=== PATIENT | female | born 1945 | race Caucasian/White ===

== ENCOUNTER → 2018-10-09 | Outpatient (CLI) | payer OTHER ==
[~2018-10-09] VITALS: Ht 154.9 cm; Wt 61.2 kg
[~2018-10-09] MED LIST: ATIVAN1 MG PO; BYSTOLIC10 MG PO; CRESTOR20 MG PO; CYMBALTA60 MG PO; HUMALOG KW100 UNIT/1 SQ; NEXIUM40 MG PO; NORVASC5 MG PO; PLAVIX 75 MG TA75 M1 PO
[2018-10-09 07:32] LABS: MCH 29.6 pg (26.0-34.0); MCHC 34.3 g/dL (28.0-37.0); MCV 86.3 fL (80.0-100.0); RBC 4.05 mil/uL (4.20-5.00); RDW 14.7 % (10.5-14.5); WBC 4.4 thou/uL (4.0-11.0)
[2018-10-09 07:38] LABS: CALCIUM 9.1 mg/dL (8.5-10.1); CREATININE 1.4 mg/dL (0.6-1.0); POTASSIUM 3.7 mmol/L (3.5-5.1)
--- NOTE | 2018-10-09 08:26 | EKG ---
[address] [address] ELECTROCARDIOGRAM REPORT Name: KASIA THOMPSON [id number] ������������������ Admission: 10/09/18 ������������������ Attend Phys: Jersey Castillo MD, Discharge: ������������������ Date of : 45 Report #: [id number] ����������������������������������������������������������������� [id number] THIS REPORT FOR: //name// [facility] Test Date: 2018-10-09 Test Time: 07:30:32 Pat Name: KASIA THOMPSON Department: Room: Gender: F Telecasting Technician: Fidel DING : 1945 Requested By: Jersey Castillo Order Number: [id number] MD: Luis Ritchie Measurements Intervals [place] Rate: 55 P: 44 [place]: 154 QRS: 37 QRSD: 104 T: 161 QT: 464 QTc: 444 Interpretive Statements Sinus rhythm Inferior infarct, old Lateral leads are also involved No previous ECG available for comparison Electronically Signed On 10-09-2018 8:26:00 CDT by Luis Ritchie [email or web address] ��������������������������������������������� <ELECTRONICALLY SIGNED> ���������������������������������������� By: Luis Ritchie MD ��������������������������������������������� 10/09/18 0826 9 9 Luis Ritchie MD /JOHNNIE
--- NOTE | 2018-10-09 16:36 | CATHLAB ---
[facility] [place] [address] INVASIVE PROCEDURE REPORT Name: KASIA THOMPSON Room #: REG Jerod#: [id number] ������������� Admission: 10/09/18 ������������� Attend Phys: Jersey Castillo, Discharge: ��� ������������� ��� Date of : 45 Date of Service: 10/09/18 1636 �� Report #: [id number] �������� ��������������������������������������������[id number] THIS REPORT FOR: //name// APPROVED REPORT Study performed: 10/09/2018 08:25:49 Patient Details Patient Status: Out-Patient Room #: The patient is a 72 year-old female Event Personnel Jersey Castillo Car Repairman, Pio Archer RN, Yane Marcelo RTR, BLUEPRINT PROCESSOR Monitor, Padma Patrick Procedures Performed Art Access - R femoral artery* Left Heart Cath Coronaries, Bypass Grafts [id number] [facility] Abdominal Aortography [id number] Initial Mod Sed Same Phys/QHP Gr5y [id number] Hemostasis w/ Mynx Indication Positive stress test Procedure Narrative The Right Groin^ was infiltrated with 1% Lidocaine subcutaneous anesthesia. A PINNACLE 6FR Sheath #[id number] sheath was inserted into the RFA^. Coronary angiography was performed using coronary diagnostic catheters. The right coronary system was accessed and visualized with a JR4 catheter. The left coronary system was accessed and visualized with a JL4 catheter. The left ventricle was accessed and visualized with a PIGTAIL catheter. Left ventriculogram was performed in 30 degree projection. An aortogram of the abdominal aorta was performed. Pre-demployment femoral angiogram was performed . Closure device was deployed with a 6 Fr MYNXGRIP 6/7F #[id number]. The patient tolerated the procedure well and there were no complications associated with the procedure. There was no hematoma. Intraoperative Conscious Sedation Sedation start time: 08:24 Case end Time: 08:57 Fentanyl 50 mcg Versed 2 mg Fluoro Time: 4.49 minutes Dose: DAP 2117.00 cGycm2 229 mGy [facility] [address] [place] [address] INVASIVE PROCEDURE REPORT Name: KASIA THOMPSON Room #: [facility]#: [id number] ������������� Admission: 10/09/18 ������������� Attend Phys: Jersey Castillo, Discharge: ��� ������������� ��� Date of : 45 Date of Service: 10/09/18 1636 �� Report #: [id number] �������� ��������������������������������������������[id number] Contrast Type and Amount: Visipaque 75 ml Hemodynamics The aortic pressure is 151/51 mmHg with a mean of 88 mmHg. The left ventricular pressure is 151/10 mmHg with a mean of mmHg. The left ventricular end diastolic pressure is 20 mmHg. Conclusion #1 normal left ventricular size and systolic function lower limits of normal inferior base hypokinetic EF 50% #2 abdominal aortogram mildly ectatic and calcified but no occlusive disease no aneurysm #3 the [place] left system is essentially occluded small attenuated left main LAD occluded and the OM filled via vein graft. 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 #5 the graft to the PDA is occluded #6 SVG to an OM is widely patent and briskly filling the OM and some retrograde circumflex filling. #7 the [place] to the LAD is intact the LAD is diffusely diseased 30-40% attenuated and extends to the apex no indication for intervention Indications and plan continue aggressive risk factor modification. There is no indication for coronary intervention. There is been minimal interval change since the catheterization 5 years prior. ��������������������������������������������� <ELECTRONICALLY SIGNED> ���������������������������������������� By: Jersey Castillo MD, FACC ��������������������������������������������� 10/09/18 1636 35 163 Jersey Castillo MD, FACC /INF
== END | disposition home or self-care (01) ==
LOC: CATH 06:53
PROVIDERS: Internal Medicine Cardiovascular Disease
DX: I25.810 Atherosclerosis of coronary artery bypass graft(s) without angina pectoris (principal); I70.0 Atherosclerosis of aorta; E11.9 Type 2 diabetes mellitus without complications; Z79.4 Long term (current) use of insulin; K21.9 Gastro-esophageal reflux disease without esophagitis; I10 Essential (primary) hypertension; E78.5 Hyperlipidemia, unspecified; Z87.891 Personal history of nicotine dependence

== ENCOUNTER → 2019-11-09 | Outpatient (CLI) | payer OTHER | LOC: SJCVCIMAG 08:37 | DX: I65.23 Occlusion and stenosis of bilateral carotid arteries (principal); R00.1 Bradycardia, unspecified; I25.810 Atherosclerosis of coronary artery bypass graft(s) without angina pectoris; E11.9 Type 2 diabetes mellitus without complications; I73.9 Peripheral vascular disease, unspecified; I34.0 Nonrheumatic mitral (valve) insufficiency; I25.5 Ischemic cardiomyopathy; I10 Essential (primary) hypertension; E78.00 Pure hypercholesterolemia, unspecified; K21.9 Gastro-esophageal reflux disease without esophagitis; Z79.899 Other long term (current) drug therapy; Z87.891 Personal history of nicotine dependence; Z82.49 Family history of ischemic heart disease and other diseases of the circulatory system; Z79.4 Long term (current) use of insulin ==

== ENCOUNTER → 2020-06-08 | Outpatient (CLI) | payer OTHER | LOC: SJCVCIMAG 09:03 | PROVIDERS: ATTEND Internal Medicine Cardiovascular Disease | DX: I25.10 Atherosclerotic heart disease of native coronary artery without angina pectoris (principal); I10 Essential (primary) hypertension; I25.5 Ischemic cardiomyopathy; R53.83 Other fatigue; E11.9 Type 2 diabetes mellitus without complications; K21.9 Gastro-esophageal reflux disease without esophagitis; I73.9 Peripheral vascular disease, unspecified; E55.9 Vitamin D deficiency, unspecified; Z95.1 Presence of aortocoronary bypass graft; Z79.4 Long term (current) use of insulin; Z79.899 Other long term (current) drug therapy; Z87.891 Personal history of nicotine dependence ==

== ENCOUNTER → 2021-03-14 | Outpatient (CLI) | payer OTHER ==
[~2021-03-14] MED LIST changes: +BYSTOLIC2.5 MG PO; +MULTAQ 400 MG400 MG PO
== END ==
LOC: SJCVCIMAG 08:11
PROVIDERS: ATTEND Internal Medicine Cardiovascular Disease
DX: I65.23 Occlusion and stenosis of bilateral carotid arteries (principal)

== ENCOUNTER 2021-03-15 12:38 | Observation (INO) | payer OTHER ==
[~2021-03-15] VITALS: Ht 154.9 cm; Wt 60.5 kg
[~2021-03-15 12:38] MED LIST changes: -BYSTOLIC2.5 MG PO; -MULTAQ 400 MG400 MG PO
--- NOTE | 2021-03-15 15:17 | NUR ---
PT ORIENTED TO ROOM AND UNIT, BED LOW AND LOCKED, SIDE RAILS UPX3, CALL LIGHT IN REACH, TELE APPLIED. WILL CONTINUE TO ASSESS.
[2021-03-15 15:50] VITALS: BP 120/72
--- NOTE | 2021-03-15 16:14 | NUR ---
CONTACT IV TEAM TO START IV.
[2021-03-15 16:45] LABS: HEMATOCRIT 35.1 % (37.0-47.0); HEMOGLOBIN 11.9 gm/dL (12.0-15.0); MCH 29.8 pg (26.0-34.0); MCHC 33.9 g/dL (28.0-37.0); RBC 3.99 mil/uL (4.20-5.00); WBC 5.7 thou/uL (4.0-11.0)
[2021-03-15 16:53] LABS: CALCIUM 8.6 mg/dL (8.5-10.1); CREATININE 1.4 mg/dL (0.6-1.0); POTASSIUM 4.9 mmol/L (3.5-5.1)
[2021-03-15 19:44] VITALS: BP 112/44
[2021-03-15 21:10] VITALS: BP 127/54
--- NOTE | 2021-03-15 21:38 | NUR ---
PATIENTS BLOOD SUGAR WAS 354 UPON 2100 ACCUCHECK. WHEN NURSE INFORMED PATIENT THAT SHE WOULD REQUIRE SOME INSULIN SHE STATED THAT "IT HAS ALREADY BEEN TAKEN CARE OF." NURSE INQUIRED WHAT SHE MEANT BY THAT AND SHE STATED THAT SHE HAS TAKEN HER HOME INSULIN. NURSE INFORMED PATIENT OF HOW DANGEROUS THAT COULD BE AND SHE AGREED THAT SHE WOULD START TAKING INSULIN FROM NURSES INSTEAD OF DOSING HERSELF. NURSE ALSO INFORMED PATIENT THAT THOSE MEDICATIONS WOULD HAVE TO BE SENT HOME AND SHE AGREED. NURSE TO RECHECK PATIENTS BLOOD SUGAR AT SUGGESTED INTERVAL FROM PROVIDER AND TREAT ACCORDINGLY. SHE IS NPO AT MIDNIGHT FOR EXPECTED CARDIAC PROCEDURE TOMORROW.
[2021-03-15 23:21] VITALS: BP 122/49
[2021-03-16 04:53] VITALS: BP 119/48
--- NOTE | 2021-03-16 09:47 | NUR ---
PT OFF UNIT FOR PPM.
[2021-03-16 09:55] VITALS: BP 127/48
[2021-03-16] MEDS ORDERED: MULTAQ 400 MG400 MG PO (14:14)
[2021-03-16] MEDS ORDERED: BYSTOLIC2.5 MG PO (14:15)
--- NOTE | 2021-03-16 16:06 | NUR ---
PT REUTRN TO ROOM 204 WITH PACEMAKER SITE LEFT CHEST CDI WITH NO HEMATOMA. WILL CONTINUE TO ASSESS.
[2021-03-16 16:52] VITALS: BP 151/63
[2021-03-16 19:24] VITALS: BP 136/63
[2021-03-17 00:17] VITALS: BP 157/71
[2021-03-17 03:20] VITALS: BP 141/73
[2021-03-17] MEDS ORDERED: TOUJEO MAX300 UNIT/1 SUBQ (07:53)
[2021-03-17 08:00] VITALS: BP 161/75
[2021-03-17] MEDS ORDERED: BENICAR40 MG PO (08:21)
--- NOTE | 2021-03-17 08:23 | NUR ---
POST PACEMAKER TO LEFT CHEST, CDI, NO C/O PAIN, UP WITH ASSIST TO BR, FLUIDS INFUSING PT REMAINS NAUSEATED PROTONIX STARTED AND PRN MEDS GIVEN THRU THE NOC, STATES SHE DIDN'T TAKE HER LONG ACTING INSULIN YESTERDAY AND WANTED TO CHECK INSULIN AT 0230 315BG TREATED WITH 4 UNITS PER PT REQUEST AND ADDED TOUJEO TO PTS HOME MED LIST, REPORT GIVEN TO NEXT SHIFT TO CON'T PPOC.
[2021-03-17] MEDS ORDERED: PROTONIX40 M2 PO (09:10)
--- NOTE | 2021-03-17 09:46 | EKG ---
[address] [address] ELECTROCARDIOGRAM REPORT Name: KASIA THOMPSON Room #: 204-[facility] M.R.#: [id number] Admission: 03/15/21 Attend Phys: Jersey Castillo MD, Discharge: Date of : 45 Report #: [id number] [facility] Test Date: 2021-03-16 Test Time: 15:01:40 Pat Name: KASIA THOMPSON Department: Room: 204 Gender: F Metal Or Wood Blocker: JONAH : 1945 Requested By: Aria Valenzuela Order Number: [id number] MD: Erik Berry Measurements Intervals [place] Rate: 66 P: 37 [place]: 162 QRS: 37 QRSD: 101 T: QT: 532 QTc: 558 Interpretive Statements Sinus rhythm Borderline repolarization abnormality Compared to ECG 10/09/2018 07:30:32 Myocardial infarct finding no longer present Electronically Signed On 03-17-2021 9:46:19 CDT by Erik Berry [email or web address] <ELECTRONICALLY SIGNED> By: Erik Berry MD, [facility] 03/17/21 0946 D: [id number] 150 Erik Berry MD, FACC /EPI
--- NOTE | 2021-03-17 11:19 | NUR ---
Assumed care of pt this AM. Pt is A&O x4, on RA, denies any chest pain. Pt has lt upper chest incision from pacemaker placement which is approximated & bruised. 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 PRN N/V medication given. Plan to discharge to home today after CXR. Will call pharmacy to have insulin pen sent. Will continue to monitor pt needs.
[2021-03-17 11:21] VITALS: BP 161/75
[2021-03-17 11:53] VITALS: BP 161/75
--- NOTE | 2021-04-12 15:01 | P ---
[facility] [place] [address] PROCEDURE REPORT Name: KASIA THOMPSON Room #: 204-P [facility] José Luis M.RJc#: [id number] Admission: 03/15/21 Attend Phys: Jersey Castillo MD, Discharge: 03/17/21 Date of : 45 Report #: [id number] THIS REPORT FOR: cc: Ami Frey MD, Carrie W. MD Couchonnal, Luis F. MD ~ DATE OF SERVICE: 03/16/2021 PREOPERATIVE DIAGNOSES: 1. Paroxysmal atrial fibrillation. 2. Tachybrady syndrome. 3. Sick sinus syndrome. 4. Sinus arrest. HISTORY: The patient is a 75-year-old female who has been having presyncopal episodes and/or cardiac tech showing new onset AFib with periods of sinus arrest and near syncope. She is here for a dual chamber pacemaker implantation. ANESTHESIA: The patient underwent MAC anesthesia with no anesthesia-related complications. DESCRIPTION OF PROCEDURE: The patient underwent informed consent. We discussed the details of the procedure including the risks, which include but not limited to bleeding, infection, vascular damage, cardiac perforation, pneumothorax. She understood these risks and is willing to proceed. She was brought to the EP laboratory in a fasting and sedated state, prepped and draped in a standard fashion, received IV antibiotics and underwent a venogram showing patency of left axillary vein. Next, lidocaine was injected below the level of left clavicle. Incision was made, pocket created over the prepectoral fascia. Access was obtained twice to left axillary vein and sheath positioned using the modified Seldinger technique. Under fluoroscopy, leads were positioned in the right ventricular apex and right atrial appendage with adequate pacing and sensing thresholds. These were sutured to the prepectoral fascia connected to the device. Pocket irrigated with vancomycin and pocket closed in two layers. Surgical glue was placed to outer skin layer. The patient awoke neurologically and hemodynamically intact. No complications. No significant bleeding. The implanted pacemaker was a Medtronic model number W3DR01, serial number #[id number]. Atrial lead is a 5076, 45 cm, serial #[id number]. RV lead was a 5076, serial #[id number]. The atrial lead demonstrated P-wave 2.1 millivolts, pacing impedance 513 ohms, pacing threshold 0.7 volts at 0.4 milliseconds. RV lead demonstrated R waves of 16 millivolts, pacing impedance of 779 ohms and a pacing threshold 1 volt at 0.4 milliseconds. The device was programmed to the AAIR/DDDR 60-130. [address] [address] PROCEDURE REPORT Name: KASIA THOMPSON Room #: 204-P [facility] José Luis M.RJc#: [id number] Admission: 03/15/21 Attend Phys: Jersey Castillo MD, Discharge: 03/17/21 Date of : 45 Report #: [id number] CONCLUSION: Successful dual chamber pacemaker implantation. <ELECTRONICALLY SIGNED> By: Luis Ritchie MD 04/12/21 1501 1143 0108 Luis Ritchie MD /nt
== END 2021-03-17 12:10 | disposition home or self-care (01) ==
LOC: SJCVC 12:38 → CV 12:38 → 2N 14:58
PROVIDERS: Nurse Practitioner Adult Health; ADMIT Internal Medicine Cardiovascular Disease; ATTEND Internal Medicine Cardiovascular Disease
DX: I49.5 Sick sinus syndrome (principal); I48.0 Paroxysmal atrial fibrillation; Z20.822 Contact with and (suspected) exposure to COVID-19; I10 Essential (primary) hypertension; E78.5 Hyperlipidemia, unspecified; E11.9 Type 2 diabetes mellitus without complications; I25.10 Atherosclerotic heart disease of native coronary artery without angina pectoris; Z79.01 Long term (current) use of anticoagulants; Z88.5 Allergy status to narcotic agent; Z88.1 Allergy status to other antibiotic agents
CPT/HCPCS: 10081; 62110; 62900; 65130; 70005

== ENCOUNTER → 2021-06-11 | Outpatient (CLI) | payer OTHER ==
[~2021-06-11] MED LIST changes: +BENICAR40 MG PO; +BYSTOLIC2.5 MG PO; +MULTAQ 400 MG400 MG PO; +PROTONIX40 M2 PO; +TOUJEO MAX300 UNIT/1 SUBQ
== END ==
LOC: SJCVCIMAG 08:38
PROVIDERS: ATTEND Internal Medicine Cardiovascular Disease
DX: I25.9 Chronic ischemic heart disease, unspecified (principal); I25.2 Old myocardial infarction; I48.0 Paroxysmal atrial fibrillation; I25.10 Atherosclerotic heart disease of native coronary artery without angina pectoris; I49.5 Sick sinus syndrome; E78.00 Pure hypercholesterolemia, unspecified; I65.23 Occlusion and stenosis of bilateral carotid arteries; E11.319 Type 2 diabetes mellitus with unspecified diabetic retinopathy without macular edema; K21.9 Gastro-esophageal reflux disease without esophagitis; E78.5 Hyperlipidemia, unspecified; Z95.0 Presence of cardiac pacemaker; Z95.1 Presence of aortocoronary bypass graft; Z88.5 Allergy status to narcotic agent; Z88.8 Allergy status to other drugs, medicaments and biological substances; Z79.4 Long term (current) use of insulin; Z79.899 Other long term (current) drug therapy; Z87.891 Personal history of nicotine dependence